=== PATIENT | female | born 1975 | race Caucasian/White ===

== ENCOUNTER 2022-05-19 05:49 | Day surgery (SDC) | payer OTHER ==
[2022-05-19] MEDS ORDERED: Lactated Ringers 1,000 ML IV ONE (06:08)
[2022-05-19] MEDS ORDERED: Lactated Ringers 1,000 ML IV SCH (07:00)
[2022-05-19] MEDS ORDERED: DIPRIVAN 200 MG/20 ML IV ONE ×2 (07:53→08:06)
[2022-05-19] MEDS ORDERED: Versed 2 MG/2 ML Injection ONE (07:53)
[2022-05-19] MEDS ORDERED: SUBLIMAZE 100 MCG/2 ML ONE (07:54)
--- NOTE | 2022-05-19 08:31 | OP ---
SURGERY DATE/TIME: 05/19/2022 0800 PREOPERATIVE DIAGNOSIS: Screening exam. POSTOPERATIVE DIAGNOSIS: Normal colon. PROCEDURE: Colonoscopy. SURGEON: Dr. Reilly. ANESTHESIA: MAC. Medications given by anesthesia department. HISTORY: The patient is a 46-year-old white female presenting for screening colonoscopy. She was appraised of the risks of the procedure including the risk of perforation, phlebitis, untoward reaction to medication, bleeding and missed lesions. The patient verbalized her understanding and desired to have the procedure performed. DESCRIPTION OF PROCEDURE: The patient was given the medications by the anesthesia department. She had continuous pulse oximetry, ECG monitoring and intermittent blood pressure monitoring during the examination. She was placed in the left lateral decubitus position. A digital rectal examination was performed and revealed normal anal sphincter tone and no masses. The flexible Olympus pediatric colonoscope was used to intubate the rectum. A view of the colon was developed sequentially to the cecum. Upon insertion and withdrawal, including a retroflex view in the rectum, no mucosal lesions were encountered. The scope was removed from the patient who tolerated the procedure well and was sent back to OP recovery in good condition. The prep was noted to be fair to good.
[2022-05-19 09:17] VITALS: BP 123/85; PULSE 60; O2SAT 97
[2022-05-19 09:45] LABS: ALBUMIN 4.2 g/dL (3.5-5.0); ALKALINE PHOSPHATASE 70 U/L (38-126); ANION GAP 11.1 MEQ/L (5-15); BLOOD UREA NITROGEN 15 mg/dL (7-17); CHLORIDE 100 mmol/L (98-107); Calcium 8.7 mg/dL (8.4-10.2); Carbon Dioxide 27 mmol/L (22-30); Creatinine 1 0.79 mg/dL (0.52-1.04); EST GLOMERULAR FILTRATION RATE > 60.0 ML/MIN; Glucose 123 mg/dL (74-106); HDL CHOLESTEROL 44 mg/dL (40-60); LDL, DIRECT 56 mg/dL (30-100); Potassium 3.9 mmol/L (3.5-5.1); SGOT/AST 39 U/L (14-36); SGPT/ALT 37 U/L (0-35); SODIUM 135 mmol/L (137-145); Total Protein 7.4 g/dL (6.3-8.2)
[2022-05-19 09:47] LABS: Cholesterol 363 mg/dL (50-200); TRIGLYCERIDE 607 mg/dL (30-150)
== END 2022-05-19 09:20 | disposition home or self-care (01) ==
LOC: SDC 05:49
PROVIDERS: ATTEND Family Medicine
DX: Z12.11 Encounter for screening for malignant neoplasm of colon (principal); I10 Essential (primary) hypertension; Z79.899 Other long term (current) drug therapy
CPT/HCPCS: 36415; 80053; 80061; 83721; J2250; J2704; J3010